=== PATIENT | male | born 1975 | race Caucasian/White ===

== ENCOUNTER 2024-09-11 11:41 | Day surgery (SDC) | payer OTHER, SELFPAY ==
[2024-09-11 11:52] VITALS: BP 170/111; PULSE 72; RESP 18; TEMP 36.6; O2SAT 95; BMI 46.7
--- NOTE | 2024-09-11 11:57 | ANES.PREANE2 ---
Pre-Anesthetic Assessment Height/Weight: Height 1.83 m Weight 156.489 kg Temp Pulse Resp BP Pulse Ox O2 Del Method 97.8 F 72 18 170/111 95 Room Air 09/11/24 11:52 09/11/24 11:52 09/11/24 11:52 09/11/24 11:52 09/11/24 11:52 09/11/24 11:52 Preop Diagnosis: screening Operation Date: 09/11/24 13:00 Proposed Procedures p Colonoscopy [id number] Z12.11(Not Applicable) - Gagandeep Montez MD Familial anesthetic complications: none Was Beta Shane taken within 24 hours: N/A Was Clonidine taken within 24 hours: N/A Last intake: Intake Last Liquid Date 09/10/24 Last Liquid Time 20:00 Last Solid Date 09/09/24 Last Solid Time 18:00 Social No alcohol Exam alert, oriented x 3 and clear to auscultation bilaterally Airway Mallampati: Class III Dentition: full History/ROS No significant history except as noted Pulmonary None reported CV/HEM Hypertension None reported Hepatic None reported GI None reported Metabolic Morbid Obesity [facility] [place] None reported Neuropsych None reported Anesthetic Plan ASA status: 3 Anesthesia: Anesthesia Evaluation and MAC Risk of > 500 ml blood loss (7ml/kg in children): No Medications/Allergies Home Medications ?Medication ?Instructions ?Recorded ?Confirmed ?Last Taken ?Type amlodipine 5 mg tablet 5 mg PO DAILY 08/17/24 09/06/24 09/11/24 09:00 History atorvastatin 20 mg tablet (Lipitor) 20 mg PO DAILY 08/17/24 09/06/24 09/10/24 History hydrochlorothiazide 25 mg tablet 25 mg PO DAILY 08/17/24 09/06/24 09/11/24 09:00 History losartan 25 mg tablet 25 mg PO DAILY 09/06/24 09/06/24 09/10/24 History Allergies Allergy/AdvReac Type Severity Reaction Status Date / Time No Known Allergies Allergy Verified 08/17/24 10:46 [facility] Anesthesia Social History Smoking and tobacco/nicotine status: never used tobacco/nicotine
[2024-09-11] MEDS: sodium chloride 0.9% 1,000 ML 15 ML IV (12:05)
[2024-09-11] MEDS: hyDRALAzine 20 mg/mL INJ 1 mL 10 MG IVP (12:11)
--- NOTE | 2024-09-11 12:14 | W.PM.OPSUD ---
Surgery/Procedure H&P Update DATE OF PROCEDURE: September 11, 2024 DATE H&P PERFORMED: 08/17/24 H&P UPDATE INFORMATION: I have reviewed H&P completed within last 30 days, I have examined patient prior to procedure and No changes to prior documentation PLANNED PROCEDURE: Operation Date: 09/11/24 13:00 Proposed Procedures p Colonoscopy [id number] Z12.11(Not Applicable) - Gagandeep Montez MD
[2024-09-11 12:16] VITALS: BP 161/81
[2024-09-11 12:40] VITALS: BP 150/79; PULSE 72; RESP 16; TEMP 36.1; O2SAT 94
[2024-09-11 12:55] VITALS: BP 171/85; PULSE 73; RESP 18; O2SAT 95
--- NOTE | 2024-09-11 13:15 | ANE.PACU2 ---
Inpatient post-anesthesia follow up: Airway intact: Yes Vital signs: Temperature 97 F Pulse Rate 73 Respiratory Rate 18 Blood Pressure 171/85 Pulse Oximetry 95 Oxygen Delivery Me thod Room Air Oxygen Flow Rate Fraction of Inspir ed Oxygen Hydration adequate: Yes Nausea and vomiting: No Pain level: 1 Mental status: Baseline
== END 2024-09-11 13:15 | disposition home or self-care (01) ==
PROVIDERS: PCP Nurse Practitioner; Visit Provider Student in an Organized Health Care Education/Training Program
PROC: 0DJD8ZZ Inspection of Lower Intestinal Tract, Via Natural or Artificial Opening Endoscopic (ICD-10-PCS; CPT 45378; principal; 2024-09-11 13:00)
DX: Z12.11 Encounter for screening for malignant neoplasm of colon (principal); D17.5 Benign lipomatous neoplasm of intra-abdominal organs; I10 Essential (primary) hypertension; E66.01 Morbid (severe) obesity due to excess calories; Z68.42 Body mass index [BMI] 45.0-49.9, adult; Z79.899 Other long term (current) drug therapy; Z80.0 Family history of malignant neoplasm of digestive organs
CPT/HCPCS: 45380; 88305; J0360; J2704; J7030